=== PATIENT | female | born 1935 | race Caucasian/White ===

== ENCOUNTER 2018-11-14 13:33 | Outpatient (CLI) | payer MEDICARE, BC | END 2018-11-14 23:59 | disposition home or self-care (01) | LOC: CARD DIAG 13:33 | PROVIDERS: ATTEND Internal Medicine Cardiovascular Disease | DX: Z01.810 Encounter for preprocedural cardiovascular examination (principal); I44.1 Atrioventricular block, second degree; I08.3 Combined rheumatic disorders of mitral, aortic and tricuspid valves | CPT/HCPCS: 93306 ==

== ENCOUNTER 2018-11-16 07:31 | Day surgery (SDC) | payer MEDICARE, BC ==
[~2018-11-16] VITALS: Ht 162.6 cm; Wt 75.6 kg
[2018-11-16] MEDS ORDERED: normal saline 1,000 ML IV SCH (07:55)
[2018-11-16] MEDS ORDERED: diphenhydrAMINE 25mg capsule PO PRN (07:55)
[2018-11-16 07:57] VITALS: BP 190/56
[2018-11-16] MEDS ORDERED: LOSA100T57 PO (08:01)
[2018-11-16] MEDS ORDERED: BIMA2.5D OP (08:01)
[2018-11-16] MEDS ORDERED: NIFE90TA44 PO (08:01)
[2018-11-16] MEDS ORDERED: ESTR10TA VG (08:01)
[2018-11-16] MEDS ORDERED: LEVO100T PO (08:01)
[2018-11-16 08:40] LABS: ALBUMIN 3.5 G/DL (3.4-5.0); ANION GAP 9 (8-16); BLOOD UREA NITROGEN 20 MG/DL (7-18); BUN/CREATININE RATIO 21.7 (6.6-38.0); CALCIUM 9.6 MG/DL (8.5-10.1); CHLORIDE 107 MMOL/L (99-107); CREATININE 0.92 MG/DL (0.40-0.90); GLUCOSE 117 MG/DL (70-104); POTASSIUM 3.2 MMOL/L (3.5-5.1); SODIUM 141 MMOL/L (135-145); TOTAL CARBON DIOXIDE 25.3 MMOL/L (24-32); eGFR 58 ML/MIN
[2018-11-16 08:41] LABS: BASOPHILS # (AUTO) 0.1 X10'3 (0-0.2); BASOPHILS % (AUTO) 1.1 % (0-1); EOSINOPHILS # (AUTO) 0.1 X10'3 (0-0.9); EOSINOPHILS % (AUTO) 1.6 % (0-6); HEMATOCRIT 40.5 % (35.0-45.0); HEMOGLOBIN 14.1 g/dl (12.0-16.0); MEAN CORPUSCULAR HEMOGLOBIN 32.5 PG (27.0-31.0); MEAN CORPUSCULAR HGB CONC 34.9 g/dL (33.0-36.5); MEAN CORPUSCULAR VOLUME 93.1 FL (78-98); MEAN PLATELET VOLUME 7.9 FL (7.4-10.4); MONOCYTES # (AUTO) 0.9 X10'3 (0-0.9); MONOCYTES % (AUTO) 10.9 % (2-12); NEUTROPHILS # (AUTO) 5.2 X10'3 (1.8-7.7); NEUTROPHILS % (AUTO) 62.4 % (42-75); PLATELET COUNT 277 X10'3 (140-440); RED BLOOD COUNT 4.35 X10'6 (4.20-5.60); RED CELL DISTRIBUTION WIDTH 13.3 % (11.5-14.5); WHITE BLOOD COUNT 8.3 X10'3 (4.5-11.0)
[2018-11-16 08:42] LABS: PROTHROMBIN TIME 10.5 SECONDS (9.0-12.0)
[2018-11-16] MEDS ORDERED: pneumococcal 23-VAL P-sac vacc 25 mcg/0.5ml vial IMVAC ONE (08:58)
[2018-11-16] MEDS ORDERED: fentaNYL/PF 50MCG/1 ML 2ML syringe ONE (09:09)
[2018-11-16] MEDS ORDERED: midazolam 2 mg/2 ml injection ONE ×2 (09:09→09:59)
[2018-11-16] MEDS ORDERED: lidocaine 1%/epinephrine 1:100,000 injection 50ml vial ONE (09:10)
[2018-11-16] MEDS ORDERED: vancomycin 1,000mg inj ONE (09:39)
[2018-11-16] MEDS ORDERED: cefazolin/dext.iso 2gm/100ml 100 ML IV ONE ×3 (09:44)
[2018-11-16 11:31] VITALS: BP 187/84
[2018-11-16 11:46] VITALS: BP 178/94
[2018-11-16 12:00] VITALS: BP 196/91
[2018-11-16 12:16] VITALS: BP 191/84
[2018-11-16 12:26] VITALS: BP 184/77
== END 2018-11-16 12:55 | disposition home or self-care (01) ==
LOC: SSTAY O 07:31
PROVIDERS: ATTEND Internal Medicine Cardiovascular Disease
DX: I44.1 Atrioventricular block, second degree (principal); I45.2 Bifascicular block; I35.0 Nonrheumatic aortic (valve) stenosis; E83.49 Other disorders of magnesium metabolism; I10 Essential (primary) hypertension; E03.9 Hypothyroidism, unspecified; H40.9 Unspecified glaucoma; Z98.890 Other specified postprocedural states; Z79.899 Other long term (current) drug therapy; Z98.49 Cataract extraction status, unspecified eye; Z90.722 Acquired absence of ovaries, bilateral
CPT/HCPCS: 33208; 36415; 71046; 80048; 83735; 85025; 85610; 93005; 99152; 99153; C1785; C1898; J0690; J2250; J3010; J3370; J3490; J7030; Q0163; A4565; A4620; C1894